=== PATIENT | male | born 1990 | race African-American/Black ===

== ENCOUNTER 2016-12-01 08:25 | Emergency (ER) | payer SELFPAY ==
[2016-12-01] MEDS ORDERED: AZITHROMYCIN 250 MG TABLET PO STA (08:48)
[2016-12-01] MEDS ORDERED: cefTRIAXone 250 MG VIAL IM STA (08:48)
[2016-12-01] MEDS ORDERED: AZITHROMYCIN 250 MG TABLET PO ONE ×2 (09:09→09:18)
[2016-12-01] MEDS ORDERED: LIDOCAINE 1% 2 ML VIAL ONE ×2 (09:09→09:18)
[2016-12-01] MEDS ORDERED: cefTRIAXone 250 MG VIAL ONE ×2 (09:09→09:16)
== END 2016-12-01 09:44 | disposition home or self-care (01) ==
DX: Z11.3 Encounter for screening for infections with a predominantly sexual mode of transmission (principal); Z87.438 Personal history of other diseases of male genital organs; F17.200 Nicotine dependence, unspecified, uncomplicated
CPT/HCPCS: 81003; 87491; 87591; 96372; 99283; A9270

== ENCOUNTER 2016-12-20 22:14 | Emergency (ER) | payer SELFPAY ==
[2016-12-20] MEDS ORDERED: PROPARACAINE 0.5% OPHTH DROPS 15 ML ONE (22:24)
[2016-12-20] MEDS ORDERED: ERYTHROMYCIN OPHTH OINT 1 GM TUBE RIGHTEYE STA (22:31)
[2016-12-20] MEDS ORDERED: ERYTHROMYCIN OPHTH OINT 1 GM TUBE ONE (22:38)
== END 2016-12-20 22:46 | disposition home or self-care (01) ==
DX: H10.31 Unspecified acute conjunctivitis, right eye (principal); F17.200 Nicotine dependence, unspecified, uncomplicated
CPT/HCPCS: 99282; 99283; J3490

== ENCOUNTER 2022-03-12 17:18 | Emergency (ER) | payer MEDICAID ==
--- NOTE | 2022-03-12 18:39 | XRAY Report ---
PROCEDURE: Knee 4 View LT INDICATIONS: Pain and swelling TECHNIQUE: 4 views of the left knee(s) were acquired. COMPARISON: None. FINDINGS: Fragmentation of the tibial tubercle, age indeterminate and of unknown clinical significance. Otherwi se normal appearance of the bones. No joint effusion. Regional soft tissues are normal. IMPRESSION: Mild fragmentation of the tibial tubercle, but no clinical significance and chronicity. Otherwise normal study. Reviewed by: Tucker Avila MD on 03/12/2022 6:38 PM PDT Approved by: Tucker Avila MD on 03/12/2022 6:38 PM PDT Station ID: [id number]
[2022-03-12] MEDS ORDERED: KETOROLAC 60 MG/2 ML VIAL IM STA (19:12)
--- NOTE | 2022-03-12 19:14 | ED Physician Documentation ---
History of Present Illness - Stated complaint Stated Complaint: L KNEE PX - Chief complaint Chief Complaint: Ext Problem - History obtained from History obtained from: Patient - History of Present Illness Timing: How many days ago (3) Pain level max: 6 Pain level now: 5 - Additonal information Additional information: 31-year-old male presents to the emergency department stating he injured his left knee several days ago while moving several heavy items for a friend including a dryer. He thinks he twisted the knee. Worse with walking, better with rest. Noted swelling to the medial aspect of the left knee. Review of Systems Constitutional: denies: Fever, Chills Nose: denies: Rhinorrhea / runny nose, Congestion Respiratory: denies: Cough GI: denies: Nausea, Vomiting, Diarrhea Skin: denies: Rash Musculoskeletal: denies: Neck pain, Back pain Neurologic: denies: Headache PD PAST MEDICAL HISTORY - Past Medical History Past Medical History: No - Past Surgical History Past Surgical History: No - Present Medications Home Medications: Ambulatory Orders Medication Instructions Recorded Confirmed Erythromycin Base [Erythromycin] 1 applic OP 5XD 7 Days oint...g. 12/20/16 - Allergies Allergies/Adverse Reactions: Allergies Allergy/AdvReac Type Severity Reaction Status Date / Time No Known Drug Allergies Allergy Verified 03/12/22 17:32 - Social History Does the pt smoke?: Yes Smoking Status: Current every day smoker Does the pt drink ETOH?: Yes Does the pt have substance abuse?: No - Immunizations Immunizations are current?: Yes - POLST Patient has POLST: No PD ED PE NORMAL - Vitals Vital signs reviewed: Yes - General General: Alert and oriented X 3, No acute distress - HEENT HEENT: Moist mucous membranes - Neck Neck: Supple, no meningeal sign - Derm Derm: Warm and dry - Extremities Extremities: Other (TTP L knee medial aspect. No joint effusion. Neurovascular intact. ACL, LCL, PCL are intact. Mild laxity to the MCL.) - Neuro Neuro: Alert and oriented X 3 Results - Vitals Vitals: Vital Signs - 24 hr 03/12/22 03/12/22 17:28 19:29 Temperature 36.4 C L 36.5 C Heart Rate 84 82 Respiratory 16 16 Rate Blood Pressure 120/67 118/62 O2 Saturation 100 99 Oxygen O2 Source Room air - Rads (name of study) Left knee x-ray Radiology: Final report received, EMP read contemporaneously, See rad report (No acute abnormality) PD MEDICAL DECISION MAKING - ED course Complexity details: reviewed results, re-evaluated patient, considered differential, d/w patient ED course: Patient is a 31-year-old male with what appears to be a left knee sprain. Placed an articulating knee brace. He has crutches at home. We will keep him off of work. We will have him follow-up with his doctor and/or orthopedics for further care. Patient counseled regarding signs and symptoms for which I believe and urgent re-evaluation would be necessary. Patient with good understanding of and agreement to plan and is comfortable going home at this time This document was made in part using voice recognition software. While efforts are made to proofread this document, sound alike and grammatical errors may occur. Departure - Departure Disposition: 01 Home, Self Care Clinical Impression: Left knee sprain Qualifiers: Encounter type: initial encounter Involved ligament of knee: medial collateral ligament Qualified Code(s): S83.412A - Sprain of medial collateral ligament of left knee, initial encounter Condition: Good Instructions: ED Sprain Knee Follow-Up: Primary[facility]Walk [facility] [place] [Provider Group] [facility] [Provider Group] [facility] [Provider Group] Comments: You may bear weight as tolerated. Please follow-up with either the walk-in clinic or orthopedics for repeat evaluation in about a week. Return if you worsen. Use the brace to help support the knee while it heals. Your x-ray does not show any acute abnormalities today Forms: Activity restrictions Discharge Date/Time: 03/12/22 19:29
[2022-03-12 19:30] VITALS: BP 118/62
== END 2022-03-12 19:29 | disposition home or self-care (01) ==
LOC: ED 17:18
DX: S83.412A Sprain of medial collateral ligament of left knee, initial encounter (principal); X50.0XXA Overexertion from strenuous movement or load, initial encounter; Y93.E6 Activity, residential relocation; F17.200 Nicotine dependence, unspecified, uncomplicated
CPT/HCPCS: 96372; 99282; 99283